=== PATIENT | female | born 1965 | race Caucasian/White ===

== ENCOUNTER 2017-12-07 19:44 | Inpatient (IN) | payer OTHER ==
[~2017-12-07] VITALS: Ht 172.7 cm; Wt 53.7 kg
[2017-12-07] MEDS ORDERED: LIDOCAINE 1%/EPINEPHrine 1:100,000 SOLN 50 ML VIAL INFIL ONE (20:00)
[2017-12-07] MEDS ORDERED: TETANUS/DIPHTHERIA TOXOID ADULT 0.5 ML VIAL IM ONE (20:00)
[2017-12-07] MEDS ORDERED: SODIUM CHLOR 0.9% 1000 ML INJ 1,000 ML IV ONE (20:00)
[2017-12-07] MEDS ORDERED: LORazepam 2 MG/ML VIAL IV PUSH ONE (20:00)
[2017-12-07 20:12] VITALS: BP 134/90; PULSE 106; RESP 18; TEMP 98.9; O2SAT 100
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
[2017-12-07 20:32] LABS: AUTOMATED NEUTROPHIL # 8.5 TH/MM3 (1.8-7.7); BASOPHIL # 0.1 TH/MM3 (0-0.2); EOSINOPHIL % 0.1 % (0.0-4.0); HEMOGLOBIN 16.9 GM/DL (11.6-15.3); LYMPH % 17.5 % (9.0-44.0); MEAN CELL VOLUME 94.9 FL (80.0-100.0); MEAN CORPUSCULAR HEMOGLOBIN 31.5 PG (27.0-34.0); MEAN CORPUSCULAR HGB CONC 33.2 % (32.0-36.0); MEAN PLATELET VOLUME 8.6 FL (7.0-11.0); MONOCYTE # 0.7 TH/MM3 (0-0.9); NEUT % 75.4 % (16.0-70.0); PLATELET COUNT 305 TH/MM3 (150-450); RED BLOOD COUNT 5.37 MIL/MM3 (4.00-5.30); RED CELL DISTRIBUTION WIDTH 13.1 % (11.6-17.2); WHITE BLOOD COUNT 11.3 TH/MM3 (4.0-11.0)
[2017-12-07 20:56] LABS: ALT (GPT) 18 U/L (10-53)
[2017-12-07] MEDS ORDERED: NICOTINE 14 MG/24 HR PATCH T-DERMAL ONE (21:00)
[2017-12-07 21:06] LABS: ALKALINE PHOSPHATASE 51 U/L (45-117); TOTAL BILIRUBIN ADULT 0.5 MG/DL (0.2-1.0); TOTAL PROTEIN 7.7 GM/DL (6.4-8.2)
[2017-12-07 21:08] LABS: ALBUMIN 4.2 GM/DL (3.4-5.0); AST (GOT) 19 U/L (15-37); BICARBONATE 19.4 MEQ/L (21.0-32.0); BLOOD UREA NITROGEN 7 MG/DL (7-18); CALCIUM 9.3 MG/DL (8.5-10.1); CHLORIDE 106 MEQ/L (98-107); GLOMERULAR FILTRATION RATE 66 ML/MIN (>89); GLUCOSE,RANDOM 117 MG/DL (74-106); SODIUM (NA) 138 MEQ/L (136-145)
[2017-12-07 21:09] LABS: ACETAMINOPHEN LESS THAN 2.0 MCG/ML (10.0-30.0)
[2017-12-08] MEDS: IBUPROFEN 600 MG TAB PO SCH ×5 (03:48→23:40)
[2017-12-08 05:00] VITALS: BP 138/78; PULSE 76; RESP 16; O2SAT 98
[2017-12-08 10:47] VITALS: BP 136/88; PULSE 84; RESP 16; TEMP 98.7; O2SAT 98
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
[2017-12-08] MEDS ORDERED: LORazepam 2 MG/ML VIAL IM PRN ×2 (13:30)
[2017-12-08] MEDS ORDERED: ALUMINUM/MAGNESIUM/SIMETH 30 ML CUP PO PRN (13:30)
[2017-12-08] MEDS ORDERED: ACETAMINOPHEN 325 MG TAB PO PRN (13:30)
[2017-12-08] MEDS ORDERED: MAGNESIUM HYDROXIDE SUSP 30 ML CUP PO PRN (13:30)
[2017-12-08 14:15] VITALS: BP 106/73; PULSE 93; RESP 17; TEMP 98.3
--- NOTE | 2017-12-08 14:36 | HHI.HP ---
Provisional Diagnosis Admission Date December 08, 2017 at 13:22 [place] I. Adjustment disorder with depressed mood, mild to moderate intellectual disability?? [place] II. Deferred [place] III. TBI [place] IV. Unemployed, poor family support [place] V. 40 Certification of Person's Competence To Provide Express and Informed Consent I have personally examined Tatyana Kenny , a person being served at [facility] on, December 08, 2017 14:20. Express and informed consent means consent voluntarily given in writing, by a competent person, after sufficient explanation and disclosure of the subject matter involved to enable the person to make a knowing and willful decision without any element of force, fraud, deceit, duress, or other form of constraint or coercion. This person is 18 years of age or older, is not now known to be incompetent to consent to treatment with a guardian advocate, and does not have a health care surrogate or proxy currently making medical treatment decisions. I have found this person to be one of the following: [] Competent to provide express and informed consent, as defined above, for voluntary admission to this facility and is competent to provide express and informed consent for treatment. He/she has the consistent capacity to make well reasoned, willful, and knowing decisions concerning his or her medical or mental health treatment. The person fully and consistently understands the purpose of the admission for examination/placement and is fully capable of personally exercising all rights assured [place] Incompetent to provide express and informed consent to voluntary admission, and this is incompetent to provide express and informed consent to treatment. The person must be transferred to involuntary status and a petition for a guardian advocate filed with the Circuit Court. [x] Refusing to provide express and informed consent to voluntary admission but is competent to provide express and informed consent for treatment. The person must be discharged or transferred to involuntary status. Form shall be completed within 24 hours of a person's arrival at the receiving facility and filed in the clinical record of each person: 1. Admitted on a voluntary basis 2. Permitted to provide express and informed consent to his/her own treatment 3. Allowed to transfer from involuntary to voluntary status 4. Prior to permitting a person to consent to his or her own treatment after having been previously found incompetent to consent to treatment. History of Present Illness Capacity: Has Capacity HPI The patient is 52-year-old woman, domiciled with a friend in [facility], mother of 3 adult kids, unemployed, without no previous psychiatric history, no previous suicide attempts, no previous psychiatric hospitalizations, medical history of TBI, presents emergency department under [place] act by for psychological evaluation. Patient is brought in by EMS. She had performed suicide gesture cutting to both forearms, patient has multiple self-inflicted lacerations in both arms, many of them sutured. She states that she has been living in a house for the last 17 years. A drug addict moved in downstairs and she cannot get him evicted. She just does not want to be here any longer. She denies that this was a suicide attempt. She denies any homicidal ideation. Not up-to-date with immunizations. Denies any medical problems. Denies any toxic ingestions. Denies alcohol and drugs. She does smoke a pack a day. Symptoms are severe. No alleviating factors. EMR was reviewed. No collateral information available at this moment. Case widely discussed with nursing charge. On psychiatric evaluation today the patient is oppositional, irritable , requesting to be discharged. The patient reports that she does not need to be here. She says that she is very afraid of the patient's around her. "There is a woman that is terrible, she has pick on me and "she does not stop watching " . The patient is quite concrete and at times childish. She states that the reason she is here is because she has been renting her basement to a roommate who is heroine addict, "he is no pain when, but he does not want to leave the house now". She reports that they had an argument yesterday, she lost the control herself, she had a moment of obnubilation and blindness, and under a stress and anger she cut herself. She says that she did not wanted to kill herself. She says that she was 1 of the, but now she understand her mistake and she regrets it. The patient denies suicidal enemas ideation, she denies visual and auditory hallucinations. She is oriented 3. No attention deficit, no fluctuation of consciousness. No agitation or aggressive behavior. Review of Systems Constitutional: DENIES: Diaphoretic episodes, Fatigue, Fever, Weight gain, Weight loss, Chills, Dizziness, Change in appetite, Night Sweats Endocrine: DENIES: Abnorml menstrual pattern, Heat/cold intolerance, Polydipsia , Polyuria, Polyphagia Eyes: DENIES: Blurred vision, Diplopia, Eye inflammation, Eye pain, Vision loss , Photosensitivity, Double Vision Ears, nose, mouth, throat: DENIES: Tinnitus, Hearing loss, Vertigo, Nasal discharge, Oral lesions, Throat pain, Hoarseness, Ear Pain, Running Nose, Epistaxis, Sinus Pain, Toothache, Odynophagia Respiratory: DENIES: Apneas, Cough, Snoring, Wheezing, Hemoptysis, Sputum production, Shortness of breath Cardiovascular: DENIES: Chest pain, Palpitations, Syncope, Dyspnea on Exertion , PND, Lower Extremity Edema, Orthopnea, Claudication Gastrointestinal: DENIES: Abdominal pain, Black stools, Bloody stools, Constipation, Diarrhea, Nausea, Vomiting, Difficulty Swallowing, Anorexia Genitourinary: DENIES: Abnormal vaginal bleeding, Dysmenorrhea, Dyspareunia, Sexual dysfunction, Urinary frequency, Urinary incontinence, Urgency, Hematuria , Dysuria, Nocturia, Vaginal discharge Musculoskeletal: DENIES: Joint pain, Muscle aches, Stiffness, Joint Swelling, Back pain, Neck pain Integumentary: DENIES: Abnormal pigmentation, Pruritus, Rash, Nail changes, Breast masses, Breast skin changes, Nipple discharge Hematologic/lymphatic: DENIES: Bruising, Lymphadenopathy Immunologic/allergic: DENIES: Eczema, Urticaria Neurologic: DENIES: Abnormal gait, Headache, Localized weakness, Paresthesias, Seizures, Speech Problems, Tremor, Poor Balance Psychiatric: DENIES: Anxiety, Confusion, Mood changes, Depression, Hallucinations, Agitation, Suicidal Ideation, Homicidal Ideation, Delusions Substance Abuse History Drugs/Alcohol past 12 months Patient denies the use of alcohol or illegal drugs Past Family Social History Coded Allergies: Penicillins (Verified Allergy, Unknown, 12/07/17) No Active Prescriptions or Reported Meds Current Medications Medications (Trade) Dose Ordered Sig/Terri Route Start Time Stop Time Status Last Admin (Motrin) 600 mg Q6HR PO 12/08/17 03:45 12/08/17 03:48 (Ativan) 1 mg Q6H PRN PO 12/08/17 13:30 (Ativan Inj) 1 mg Q6H PRN IM 12/08/17 13:30 (Ativan) 0.5 mg Q12H PRN PO 12/08/17 13:30 (Ativan Inj) 0.5 mg Q12H PRN IM 12/08/17 13:30 (Tylenol) 650 mg Q4H PRN PO 12/08/17 13:30 (Milk Of Magnesia Liq) 30 ml DAILY PRN PO 12/08/17 13:30 (Mag-Al Plus Susp Liq) 30 ml Q6H PRN PO 12/08/17 13:30 (Habitrol 21 Mg Patch.24 Hr) 1 patch DAILY T-DERMAL 12/09/17 09:00 Miscellaneous Information 1 HS T-DERMAL 12/08/17 21:00 Family Psych History No family psychiatric history Social History The patient was born and raised in [facility], she lives in [facility] with her best friend, she has 3 adult kids, unemployed, 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 2) Verbal communication, no previous psychiatric history Physical Exam No tremors, no psychomotor agitation retardation, no EPS, no gait disturbance, no stiffness Vital Signs Vital Signs Date Time Temp Pulse Resp B/P (MAP) Pulse Ox O2 Delivery O2 Flow Rate FiO2 12/08/17 10:47 98.7 84 16 136/88 (104) 98 Room Air Lab Results Test 12/07/17 20:10 12/07/17 21:40 White Blood Count 11.3 TH/MM3 Red Blood Count 5.37 MIL/MM3 Hemoglobin 16.9 GM/DL Hematocrit 51.0 % Mean Corpuscular Volume 94.9 FL Mean Corpuscular Hemoglobin 31.5 PG Mean Corpuscular Hemoglobin Concent 33.2 % Red Cell Distribution Width 13.1 % Platelet Count 305 TH/MM3 Mean Platelet Volume 8.6 FL Neutrophils (%) (Auto) 75.4 % Lymphocytes (%) (Auto) 17.5 % Monocytes (%) (Auto) 6.0 % Eosinophils (%) (Auto) 0.1 % Basophils (%) (Auto) 1.0 % Neutrophils # (Auto) 8.5 TH/MM3 Lymphocytes # (Auto) 2.0 TH/MM3 Monocytes # (Auto) 0.7 TH/MM3 Eosinophils # (Auto) 0.0 TH/MM3 Basophils # (Auto) 0.1 TH/MM3 CBC Comment DIFF FINAL Differential Comment Blood Urea Nitrogen 7 MG/DL Creatinine 0.90 MG/DL Random Glucose 117 MG/DL Total Protein 7.7 GM/DL Albumin 4.2 GM/DL Calcium Level 9.3 MG/DL Alkaline Phosphatase 51 U/L Aspartate Amino Transf (AST/SGOT) 19 U/L Alanine Aminotransferase (ALT/SGPT) 18 U/L Total Bilirubin 0.5 MG/DL Sodium Level 138 MEQ/L Potassium Level 4.3 MEQ/L Chloride Level 106 MEQ/L Carbon Dioxide Level 19.4 MEQ/L Anion Gap 13 MEQ/L Estimat Glomerular Filtration Rate 66 ML/MIN Thyroid Stimulating Hormone 3rd Gen 1.060 uIU/ML Salicylates Level 3.6 MG/DL Acetaminophen Level LESS THAN 2.0 MCG/ML Ethyl Alcohol Level LESS THAN 3 MG/DL Urine Opiates Screen NEG Urine Barbiturates Screen NEG Urine Amphetamines Screen NEG Urine Benzodiazepines Screen NEG Urine Cocaine Screen NEG Urine Cannabinoids Screen NEG Mental Status Examination Appearance: Appropriate Consciousness: Alert Orientation: x4 Motor Activity: Normal gait Speech: Unremarkable Language: Adequate Fund of Knowledge: Adequate Attention and Concentration: Adequate Memory: Unremarkable Mood: Appropriate Affect: Appropriate Thought Process & Associations: Intact Thought Content: Appropriate Hallucination Type: None Delusion Type: None Suicidal Ideation: No Suicidal Plan: No Suicidal Intention: No Homicidal Ideation: No Homicidal Plan: No Homicidal Intention: No Insight: Adequate Judgment: Adequate Assessment & Plan Problem List: (1) Adjustment disorder with depressed mood ICD Codes: F43.21 - Adjustment disorder with depressed mood Assessment & Plan: Psychiatric evaluation today the patient is oppositional, irritable, superficially cooperative. She seems to be minimizing recent suicide attempt by cutting. She reports that her suicidal gesture was the result of an argument with a person who lives in her house. However, the self- inflicted lacerations are quite deep and numerous which may me think that the patient is not insightful about her emotions and feelings. She denies depression at the moment, denies anxiety, denies wil and psychosis. She denies suicidal enemas ideation, she denies visual and auditory hallucinations. [place] and bizarre thinking, child like behavior are present which may me wonder if the patient may have an underlying developmental delay and as a result of poor impulse control. Given the lethality of recent suicidal gesture , the elevated risk of danger to self at the moment, the patient will be admitted in psychiatry for longitudinal observation of mood and behavior. She refuses to take medications. Collateral information is crucial to complete the psychiatric assessment start a safe discharge plan. Brief supportive psychotherapy and psychoeducation provided. Haldol 5 mg IM every 8 hours as needed aggressive behavior and agitation will be ordered. Transfer to the psychiatric unit. Assessment & Plan Estimated LOS: days Patrick Alvarez MD December 08, 2017 14:36
[2017-12-08] MEDS: NICOTINE 21 MG/24 HR PATCH T-DERMAL SCH (16:00)
[2017-12-08] MEDS: REMOVE OLD PATCH T-DERMAL SCH (21:00)
[2017-12-09] MEDS: LORazepam 1 MG TAB PO PRN (00:38)
[2017-12-09] MEDS: IBUPROFEN 600 MG TAB PO SCH ×3 (05:57→18:33)
[2017-12-09 06:23] VITALS: BP 124/70; PULSE 65; RESP 16; TEMP 97.2
[2017-12-09 08:29] LABS: BICARBONATE 23.9 MEQ/L (21.0-32.0); BLOOD UREA NITROGEN 10 MG/DL (7-18); CALCIUM 8.4 MG/DL (8.5-10.1); CHLORIDE 111 MEQ/L (98-107); CHOLESTEROL 124 MG/DL (120-200); CREATININE 0.73 MG/DL (0.50-1.00); GLOMERULAR FILTRATION RATE 84 ML/MIN (>89); GLUCOSE,RANDOM 96 MG/DL (74-106); HDL CHOLESTEROL 45.8 MG/DL (40.0-60.0); LDL CHOLESTEROL 62 MG/DL (0-99); SODIUM (NA) 142 MEQ/L (136-145); TRIGLYCERIDES 80 MG/DL (42-150)
--- NOTE | 2017-12-09 08:40 | PD ---
History of Present Illness Chief Complaint: Suicide Ideation/Attempt Time Seen by Provider: 07:30 Travel History International Travel<30 Days: No Contact w/Intl Traveler<30days: No Known affected area: No Legal Status Legal Status: [place] Act [place] Act Signed By: Duane Romeo History of Present Illness: Chart reviewed and discussed with nurse. MAJO Cee and I met with patient in day room. Patient is pre-occupied about shaving her face with a razor that she has in her belongings. The night staff noted that she was pre-occupied with the care of her cats and contacting her boyfriend. She states, " I have PTSD because I keep living with people who have alcohol and drug problems." Sleeping and eating well. Taking motrin for the discomfort in her bilateral wrists, dressing intact. States her mood is good. PFSH Past Medical History Medical History: Denies Significant Hx Arthritis: No Asthma: No Autoimmune Disease: No Anxiety: Yes Depression: Yes Heart Rhythm Problems: No Cancer: No Cardiovascular Problems: No High Cholesterol: No Chemotherapy: No Chest Pain: No Congestive Heart Failure: No COPD: No Cerebrovascular Accident: No Diabetes: No Patient Takes Glucophage: No Endocrine: No GERD: No Genitourinary: No Hiatal Hernia: No Immune Disorder: No Kidney Stones: No Musculoskeletal: No Neurologic: No Psychiatric: No Reproductive: No Respiratory: No Migraines: No Radiation Therapy: No Renal Failure: No Seizures: No Sickle Cell Disease: No Sleep Apnea: No Thyroid Disease: No Ulcer: No Tetanus Vaccination: > 5 Years ?: Not Past Surgical History Abdominal Surgery: No AICD: No Arteriovenous Shunt: No Cardiac Surgery: No Ear Surgery: No Endocrine Surgery: No Eye Surgery: No Genitourinary Surgery: No Gynecologic Surgery: No Insulin Pump: No Joint Replacement: No Oral Surgery: No Pacemaker: No Thoracic Surgery: No Psychiatric History Psychiatric History Hx Psychiatric Treatment: PT DENIES History of Inpatient Treatment: No Guns or firearms in home: No Social History Hx Alcohol Use: Yes Hx Tobacco Use: No Hx Substance Use: No (HX ALCOHOL) Hx of Substance Use Treatment: No Allergies-Medications (Allergen,Severity, Reaction): Coded Allergies: Penicillins (Verified Allergy, Unknown, 12/07/17) Reported Meds & Prescriptions Reported Meds & Active Scripts Active No Active Prescriptions or Reported Medications Mental Status Examination Appearance: Appropriate Consciousness: Alert Orientation: x4 Motor Activity: Other (Did not observe) Speech: Unremarkable Language: Adequate Fund of Knowledge: Adequate Attention and Concentration: Adequate Memory: Unremarkable Mood: Oppositional, Irritable Affect: Blunt Thought Process & Associations: Intact, Logical, Goal directed Thought Content: Appropriate Hallucination Type: None Delusion Type: None Suicidal Ideation: No Suicidal Plan: No Suicidal Intention: No Homicidal Ideation: No Homicidal Plan: No Homicidal Intention: No Insight: Poor Judgment: Impulsive MDM Medical Decision Making Assessment/Plan Patient is easily directed and cooperative. Endorses today that she is not suicidal, but not remorsal for cutting her wrists. She feels that she was brought to cutting her wrists due to her living situation. Moving patient to a lower level of care may result in her decompensation. Orders Orders Diet Regular Basic (12/08/17 Lunch) Admit To Inpatient Psych (12/08/17 ) Vital Signs (Adult) MANUEL.Q12H.E (12/08/17 13:19) Activity Oob Ad Lynn (12/08/17 13:19) Lorazepam (Ativan) (12/08/17 13:30) Lorazepam Inj (Ativan Inj) (12/08/17 13:30) Lorazepam (Ativan) (12/08/17 13:30) Lorazepam Inj (Ativan Inj) (12/08/17 13:30) Acetaminophen (Tylenol) (12/08/17 13:30) Magnesium Hydroxide Liq (Milk Of Magnesi (12/08/17 13:30) Al-Mag Hy-Si 40-40-4 Mg/Ml Liq (Mag-Al P (12/08/17 13:30) Basic Metabolic Panel (Bmp) (12/09/17 06:00) Lipid Profile (12/09/17 06:00) Hemoglobin (Hgb) A1c (12/09/17 06:00) Remove Old Patch (12/08/17 21:00) Consult Psychiatry (12/08/17 ) (Hub Use Only)Inp Phy Cons/Ref (12/08/17 ) Nicotine 21 Mg Patch.24 Hr (Habitrol 21 (12/08/17 16:00) Results Vital Signs Date Time Temp Pulse Resp B/P (MAP) Pulse Ox O2 Delivery O2 Flow Rate FiO2 12/09/17 06:57 16 12/09/17 06:23 97.2 65 16 124/70 (88) 12/08/17 14:15 98.3 93 17 106/73 (84) 12/08/17 10:47 98.7 84 16 136/88 (104) 98 Room Air Laboratory Tests Test 12/09/17 07:07 Blood Urea Nitrogen 10 Creatinine 0.73 Random Glucose 96 Calcium Level 8.4 Sodium Level 142 Potassium Level 3.7 Chloride Level 111 Carbon Dioxide Level 23.9 Anion Gap 7 Estimat Glomerular Filtration Rate 84 Triglycerides Level 80 Cholesterol Level 124 LDL Cholesterol 62 HDL Cholesterol 45.8 Cholesterol/HDL Ratio 2.70 Diagnosis Primary Impression: Adjustment disorder with depressed mood Prescriptions No Active Prescriptions or Reported Meds Lu Hussein December 09, 2017 08:40
[2017-12-09] MEDS: NICOTINE 21 MG/24 HR PATCH T-DERMAL SCH (09:00)
--- NOTE | 2017-12-09 09:32 | HHI.PYPN ---
Subjective Remarks Chart reviewed and discussed with nurse. MAJO Cee and I met with patient in day room. Patient is pre-occupied about shaving her face with a razor that she has in her belongings. The night staff noted that she was pre-occupied with the care of her cats and contacting her boyfriend. She states, " I have PTSD because I keep living with people who have alcohol and drug problems." Sleeping and eating well. Taking motrin for the discomfort in her bilateral wrists, dressing intact. States her mood is good. Mental Status Examination Appearance: Appropriate Consciousness: Alert Orientation: x4 Motor Activity: Other (Did not observe) Speech: Unremarkable Language: Adequate Fund of Knowledge: Adequate Attention and Concentration: Adequate Memory: Unremarkable Mood: Oppositional, Irritable Affect: Blunt Thought Process & Associations: Intact, Logical, Goal directed Thought Content: Appropriate Hallucination Type: None Delusion Type: None Suicidal Ideation: No Suicidal Plan: No Suicidal Intention: No Homicidal Ideation: No Homicidal Plan: No Homicidal Intention: No Insight: Poor Judgment: Impulsive Results Labs Test 12/09/17 07:07 Blood Urea Nitrogen 10 MG/DL Creatinine 0.73 MG/DL Random Glucose 96 MG/DL Calcium Level 8.4 MG/DL Sodium Level 142 MEQ/L Potassium Level 3.7 MEQ/L Chloride Level 111 MEQ/L Carbon Dioxide Level 23.9 MEQ/L Anion Gap 7 MEQ/L Estimat Glomerular Filtration Rate 84 ML/MIN Triglycerides Level 80 MG/DL Cholesterol Level 124 MG/DL LDL Cholesterol 62 MG/DL HDL Cholesterol 45.8 MG/DL Cholesterol/HDL Ratio 2.70 RATIO Vitals/IOs Vital Signs Date Time Temp Pulse Resp B/P (MAP) Pulse Ox O2 Delivery O2 Flow Rate FiO2 12/09/17 06:57 16 12/09/17 06:23 97.2 65 124/70 (88) 12/08/17 10:47 98 Room Air Assessment & Plan Problem List: (1) Adjustment disorder with depressed mood ICD Codes: F43.21 - Adjustment disorder with depressed mood Assessment & Plan Estimated LOS: days Justification for Cont. Inpt. Patient is easily directed and cooperative. Endorses today that she is not suicidal, but not remorsal for cutting her wrists. She feels that she was brought to cutting her wrists due to her living situation. Moving patient to a lower level of care may result in her decompensation. Lu Hsusein December 09, 2017 09:31
[2017-12-09 18:14] VITALS: BP 114/67; PULSE 95; RESP 17; TEMP 98.1; O2SAT 99
[2017-12-09] MEDS: hydrOXYzine HCL 50 MG TAB PO PRN (18:31)
[2017-12-09] MEDS: REMOVE OLD PATCH T-DERMAL SCH (21:32)
[2017-12-09] MEDS: LORazepam 0.5 MG TAB PO PRN (22:19)
[2017-12-10] MEDS: hydrOXYzine HCL 50 MG TAB PO PRN ×2 (00:25→18:23)
[2017-12-10] MEDS: IBUPROFEN 600 MG TAB PO SCH ×5 (00:25→23:13)
[2017-12-10 06:10] VITALS: BP 107/71; PULSE 69; RESP 16; TEMP 97.6; O2SAT 99
[2017-12-10] MEDS: NICOTINE 21 MG/24 HR PATCH T-DERMAL SCH (09:00)
[2017-12-10] MEDS: LORazepam 0.5 MG TAB PO PRN (11:48)
[2017-12-10 13:09] LABS: HEMOGLOBIN A1C 5.5 % (4.3-6.0)
--- NOTE | 2017-12-10 14:56 | PD.PSY.CON ---
Provisional Diagnosis Admission Date December 08, 2017 at 13:22 [place] I. 1. Adjustment disorder with depressed mood [place] II. 1. Rule out some degree of intellectual disability or acquired intellectual deficit History of Present Illness Service Psychiatry Consult Requested By Dr. Alvarez Reason for Consult Second opinion for involuntary psychiatric hospitalization Primary Care Physician Unknown HPI From Dr. Alvarez's H&P: The patient is 52-year-old woman, domiciled with a friend in [facility], mother of 3 adult kids, unemployed, without no previous psychiatric history, no previous suicide attempts, no previous psychiatric hospitalizations, medical history of TBI, presents emergency department under [place] act by PD for psychological evaluation. Patient is brought in by EMS. She had performed suicide gesture cutting to both forearms, patient has multiple self-inflicted lacerations in both arms, many of them sutured. She states that she has been living in a house for the last 17 years. A drug addict moved in downstairs and she cannot get him evicted. She just does not want to be here any longer. She denies that this was a suicide attempt. She denies any homicidal ideation. Not up-to-date with immunizations. Denies any medical problems. Denies any toxic ingestions. Denies alcohol and drugs. She does smoke a pack a day. Symptoms are severe. No alleviating factors. EMR was reviewed. No collateral information available at this moment. Case widely discussed with nursing charge. On psychiatric evaluation today the patient is oppositional, irritable , requesting to be discharged. The patient reports that she does not need to be here. She says that she is very afraid of the patient's around her. "There is a woman that is terrible, she has pick on me and "she does not stop watching " . The patient is quite concrete and at times childish. She states that the reason she is here is because she has been renting her basement to a roommate who is heroine addict, "he is no pain when, but he does not want to leave the house now". She reports that they had an argument yesterday, she lost the control herself, she had a moment of obnubilation and blindness, and under a stress and anger she cut herself. She says that she did not wanted to kill herself. She says that she was 1 of the, but now she understand her mistake and she regrets it. The patient denies suicidal enemas ideation, she denies visual and auditory hallucinations. She is oriented 3. No attention deficit, no fluctuation of consciousness. No agitation or aggressive behavior. On my examination today, 12/10: Patient seen and examined with nurse. Chart reviewed. Case discussed with nursing staff. I have discussed with patient the purpose of my evaluation today as regards the second opinion. On my examination today, the patient presents as fairly childlike. Her thought process is concrete and she repeats much of the same material over and over again. She is tearful and labile. She is perseverative on wanting to be sent to the [facility]. She tells me "I do not want to be in [facility] with a heroin addict." No active SI or HI verbalized, but the patient seems unreliable to contract for safety. No psychotic material verbalized. Psychiatric interview is somewhat limited because of patient's perseveration, and I am unable to obtain any meaningful past psychiatric, family, chemical dependency or social history for the same reason. No physical complaints. Review of Systems ROS Limitations: Poor Historian Except as stated in HPI: all other systems reviewed are Neg Past Family Social History Coded Allergies: Penicillins (Verified Allergy, Unknown, 12/07/17) Past Medical History See electronic medical record No Active Prescriptions or Reported Meds Current Medications Medications (Trade) Dose Ordered Sig/Terri Route Start Time Stop Time Status Last Admin (Motrin) 600 mg Q6HR PO 12/08/17 03:45 12/10/17 11:49 (Ativan) 1 mg Q6H PRN PO 12/08/17 13:30 12/09/17 00:38 (Ativan Inj) 1 mg Q6H PRN IM 12/08/17 13:30 (Ativan) 0.5 mg Q12H PRN PO 12/08/17 13:30 12/10/17 11:48 (Ativan Inj) 0.5 mg Q12H PRN IM 12/08/17 13:30 (Tylenol) 650 mg Q4H PRN PO 12/08/17 13:30 (Milk Of Magnesia Liq) 30 ml DAILY PRN PO 12/08/17 13:30 (Mag-Al Plus Susp Liq) 30 ml Q6H PRN PO 12/08/17 13:30 (Habitrol 21 Mg Patch.24 Hr) 1 patch DAILY T-DERMAL 12/08/17 16:00 12/10/17 09:00 Miscellaneous Information 1 HS T-DERMAL 12/08/17 21:00 12/09/17 21:32 (Atarax) 50 mg Q8H PRN PO 12/09/17 15:45 12/10/17 00:25 Patient's Strengths (min. 2) In a monitored setting. Verbally fluent. Physical Exam Physical exam completed by ED provider. On my examination today, patient appears to be in no acute physical distress. No motor abnormalities noted. Labs and vitals reviewed: Vital Signs Vital Signs Date Time Temp Pulse Resp B/P (MAP) Pulse Ox O2 Delivery O2 Flow Rate FiO2 12/10/17 12:50 16 12/10/17 06:10 97.6 69 107/71 (83) 99 12/08/17 10:47 Room Air Lab Results Laboratory Tests Test 12/07/17 20:10 12/07/17 21:40 12/09/17 07:07 White Blood Count 11.3 TH/MM3 Red Blood Count 5.37 MIL/MM3 Hemoglobin 16.9 GM/DL Hematocrit 51.0 % Mean Corpuscular Volume 94.9 FL Mean Corpuscular Hemoglobin 31.5 PG Mean Corpuscular Hemoglobin Concent 33.2 % Red Cell Distribution Width 13.1 % Platelet Count 305 TH/MM3 Mean Platelet Volume 8.6 FL Neutrophils (%) (Auto) 75.4 % Lymphocytes (%) (Auto) 17.5 % Monocytes (%) (Auto) 6.0 % Eosinophils (%) (Auto) 0.1 % Basophils (%) (Auto) 1.0 % Neutrophils # (Auto) 8.5 TH/MM3 Lymphocytes # (Auto) 2.0 TH/MM3 Monocytes # (Auto) 0.7 TH/MM3 Eosinophils # (Auto) 0.0 TH/MM3 Basophils # (Auto) 0.1 TH/MM3 CBC Comment DIFF FINAL Differential Comment Blood Urea Nitrogen 7 MG/DL 10 MG/DL Creatinine 0.90 MG/DL 0.73 MG/DL Random Glucose 117 MG/DL 96 MG/DL Total Protein 7.7 GM/DL Albumin 4.2 GM/DL Calcium Level 9.3 MG/DL 8.4 MG/DL Alkaline Phosphatase 51 U/L Aspartate Amino Transf (AST/SGOT) 19 U/L Alanine Aminotransferase (ALT/SGPT) 18 U/L Total Bilirubin 0.5 MG/DL Sodium Level 138 MEQ/L 142 MEQ/L Potassium Level 4.3 MEQ/L 3.7 MEQ/L Chloride Level 106 MEQ/L 111 MEQ/L Carbon Dioxide Level 19.4 MEQ/L 23.9 MEQ/L Thyroid Stimulating Hormone 3rd Gen 1.060 uIU/ML Salicylates Level 3.6 MG/DL Acetaminophen Level LESS THAN 2.0 MCG/ML Ethyl Alcohol Level LESS THAN 3 MG/DL Urine Opiates Screen NEG Urine Barbiturates Screen NEG Urine Amphetamines Screen NEG Urine Benzodiazepines Screen NEG Urine Cocaine Screen NEG Urine Cannabinoids Screen NEG Anion Gap 7 MEQ/L Estimat Glomerular Filtration Rate 84 ML/MIN Hemoglobin A1c 5.5 % Triglycerides Level 80 MG/DL Cholesterol Level 124 MG/DL LDL Cholesterol 62 MG/DL HDL Cholesterol 45.8 MG/DL Cholesterol/HDL Ratio 2.70 RATIO Mental Status Examination Appearance: Appropriate Consciousness: Alert Orientation: x4 Motor Activity: Other (No motor abnormalities noted) Speech: Unremarkable Language: Adequate Fund of Knowledge: Inadequate Attention and Concentration: Adequate Memory: Unremarkable Mood: Anxious Affect: Labile, Other (Childlike) Thought Process & Associations: Other (Perseverative, concrete) Thought Content: Preoccupations Hallucination Type: None Delusion Type: None Suicidal Ideation: No (No SI voiced) Homicidal Ideation: No (No HI voiced) Insight: Poor Judgment: Impulsive Assessment & Plan Problem List: (1) Adjustment disorder with depressed mood ICD Codes: F43.21 - Adjustment disorder with depressed mood Assessment & Plan Given the circumstances of the patient's presentation here and her presentation on my examination today, I concur that the patient meets criteria for involuntary psychiatric hospitalization under the Carr act. I have completed the second opinion paperwork. Concern here is for risk for ongoing self-harm. Continue to monitor on the inpatient unit. Continue other medications and care as ordered. Discharge Planning As ordered by primary psychiatrist Osorio King MD December 10, 2017 14:55
[2017-12-10 15:13] VITALS: BP 118/66; PULSE 65; RESP 18; TEMP 97.8; O2SAT 99
[2017-12-10] MEDS: REMOVE OLD PATCH T-DERMAL SCH (21:00)
[2017-12-10] MEDS: LORazepam 1 MG TAB PO PRN (21:43)
[2017-12-11] MEDS: IBUPROFEN 600 MG TAB PO SCH ×4 (06:02→23:01)
[2017-12-11 06:13] VITALS: BP 108/61; PULSE 61; RESP 18; TEMP 97.5; O2SAT 96
[2017-12-11] MEDS: NICOTINE 21 MG/24 HR PATCH T-DERMAL SCH (08:15)
--- NOTE | 2017-12-11 11:17 | HHI.PYPN ---
Subjective Remarks Patient initially admitted by Dr. Barnes, he is not H&P there is been reviewed by me. I have completed the initial psychiatric admission template and did a review of bed recurrence's alleviation. Patient is also been seen by Dr. King to second opinion petition. Patient seen by me today continues quite labile and tearful markedly disorganized circumstantial and tangential. Trying very little ability to process and organize past behaviors coherently. He does deny alcohol or drugs. States that she may have had issues with those in the past. She deflects much responsibility for past behaviors on to relationships initially with family of origin. We will add Zoloft 25 mg daily. We will need to work with counselors find this lady an appropriate placement. However I wonder if there may be a possibility of her returning to the room she has been renting from this 1 man for 17 years Review of Systems Constitutional: DENIES: Diaphoretic episodes, Fatigue, Fever, Weight gain, Weight loss, Chills, Dizziness, Change in appetite, Night Sweats Endocrine: DENIES: Abnorml menstrual pattern, Heat/cold intolerance, Polydipsia , Polyuria, Polyphagia Eyes: DENIES: Blurred vision, Diplopia, Eye inflammation, Eye pain, Vision loss , Photosensitivity, Double Vision Ears, nose, mouth, throat: DENIES: Tinnitus, Hearing loss, Vertigo, Nasal discharge, Oral lesions, Throat pain, Hoarseness, Ear Pain, Running Nose, Epistaxis, Sinus Pain, Toothache, Odynophagia Respiratory: DENIES: Apneas, Cough, Snoring, Wheezing, Hemoptysis, Sputum production, Shortness of breath Cardiovascular: DENIES: Chest pain, Palpitations, Syncope, Dyspnea on Exertion , PND, Lower Extremity Edema, Orthopnea, Claudication Gastrointestinal: DENIES: Abdominal pain, Black stools, Bloody stools, Constipation, Diarrhea, Nausea, Vomiting, Difficulty Swallowing, Anorexia Genitourinary: DENIES: Abnormal vaginal bleeding, Dysmenorrhea, Dyspareunia, Sexual dysfunction, Urinary frequency, Urinary incontinence, Urgency, Hematuria , Dysuria, Nocturia, Vaginal discharge Musculoskeletal: DENIES: Joint pain, Muscle aches, Stiffness, Joint Swelling, Back pain, Neck pain Integumentary: DENIES: Abnormal pigmentation, Pruritus, Rash, Nail changes, Breast masses, Breast skin changes, Nipple discharge Hematologic/lymphatic: DENIES: Bruising, Lymphadenopathy Immunologic/allergic: DENIES: Eczema, Urticaria Neurologic: DENIES: Abnormal gait, Headache, Localized weakness, Paresthesias, Seizures, Speech Problems, Tremor, Poor Balance Psychiatric: COMPLAINS OF: Anxiety, Depression, Agitation, Suicidal Ideation ( Vaguely denies) Mental Status Examination Appearance: Appropriate Consciousness: Alert Orientation: x4 Motor Activity: Normal gait Speech: Pressured, Rapid Language: Adequate Fund of Knowledge: Inadequate Attention and Concentration: Adequate Memory: Unremarkable Mood: Sad, Anxious Affect: Other (Decreased range and intensity) Thought Process & Associations: Circumstantial, Tangential, Other ( Perseverative, concrete) Thought Content: Preoccupations Hallucination Type: None Delusion Type: None Suicidal Ideation: No (No SI voiced made illusions to her safety she was discharged to the street) Homicidal Ideation: No (No HI voiced) Homicidal Plan: No Homicidal Intention: No Insight: Poor Judgment: Poor Results Vitals/IOs Vital Signs Date Time Temp Pulse Resp B/P (MAP) Pulse Ox O2 Delivery O2 Flow Rate FiO2 12/11/17 06:13 97.5 61 18 108/61 (77) 96 12/08/17 10:47 Room Air Assessment & Plan Problem List: (1) Adjustment disorder with mixed disturbance of emotions and conduct ICD Codes: F43.25 - Adjustment disorder with mixed disturbance of emotions and conduct Assessment & Plan Estimated LOS: days patient remains depressed and anxious tearful and markedly disorganized we will add Zoloft to the medication regimen. We will have to work with Counselor Remberto possible placement for this lady. He also benefit us to talk with her landlord to get further information about these events Justification for Cont. Inpt. At this time patient would decompensate a place to a lower level of care Discharge Planning To be determined Request HC Surrog/Guard Advoc?: No Luis Wills MD December 11, 2017 11:17
[2017-12-11] MEDS: SERTRALINE HCL 50 MG TAB PO SCH (12:00)
[2017-12-11] MEDS ORDERED: hydrOXYzine HCL 50 MG TAB PO PRN (12:00)
[2017-12-11] MEDS ORDERED: diphenhydrAMINE HCL 50 MG CAP PO PRN (12:00)
--- NOTE | 2017-12-11 14:38 | PD.CONS ---
HPI Service [facility] Consult Requested By Psychiatry Reason for Consult Help with medical management Primary Care Physician Unknown Diagnoses: (1) Adjustment disorder with mixed disturbance of emotions and conduct (2) Adjustment disorder with depressed mood History of Present Illness Patient is a 52-year-old female who lives in [facility] who was brought in by the Police Department under a Carr act for psychological evaluation. Patient was noted to have multiple self-inflicted lacerations on bilateral arms that have already been sutured. Patient has a previous history of a traumatic brain injury and surgery on her right foot Review of Systems Constitutional: DENIES: Diaphoretic episodes, Fatigue, Fever, Weight gain, Weight loss, Chills, Dizziness, Change in appetite, Night Sweats Endocrine: DENIES: Abnorml menstrual pattern, Heat/cold intolerance, Polydipsia , Polyuria, Polyphagia Eyes: DENIES: Blurred vision, Diplopia, Eye inflammation, Eye pain, Vision loss , Photosensitivity, Double Vision Ears, nose, mouth, throat: DENIES: Tinnitus, Hearing loss, Vertigo, Nasal discharge, Oral lesions, Throat pain, Hoarseness, Running Nose, Epistaxis, Sinus Pain, Toothache, Odynophagia Respiratory: DENIES: Apneas, Cough, Snoring, Wheezing, Hemoptysis, Sputum production, Shortness of breath Cardiovascular: DENIES: Chest pain, Palpitations, Syncope, Dyspnea on Exertion , PND, Lower Extremity Edema, Orthopnea, Claudication Gastrointestinal: DENIES: Abdominal pain, Black stools, Bloody stools, Constipation, Diarrhea, Nausea, Vomiting, Difficulty Swallowing, Anorexia Genitourinary: DENIES: Dysmenorrhea, Dyspareunia, Urgency, Hematuria, Dysuria, Nocturia Musculoskeletal: DENIES: Joint pain, Muscle aches, Stiffness, Joint Swelling Integumentary: DENIES: Abnormal pigmentation, Pruritus, Rash Hematologic/lymphatic: DENIES: Bruising, Lymphadenopathy Immunologic/allergic: DENIES: Eczema, Urticaria Neurologic: DENIES: Abnormal gait, Headache, Localized weakness, Paresthesias, Seizures, Speech Problems Psychiatric: COMPLAINS OF: Anxiety, Mood changes, Agitation, Suicidal Ideation , Delusions Except as stated in HPI: all other systems reviewed are Neg Past Family Social History Allergies: Coded Allergies: Penicillins (Verified Allergy, Unknown, 12/07/17) Past Medical History Traumatic brain injury Surgery on right foot PTSD Depression Anxiety Past Surgical History Traumatic brain injury Surgery on right foot Reported Medications Reported Meds & Active Scripts Active No Active Prescriptions or Reported Medications Active Ordered Medications Current Medications Lorazepam (Ativan Inj) 2 mg ONCE ONCE IV PUSH Last administered on 12/07/17 20:30; Start 12/07/17 at 20:00; Stop 12/07/17 at 20:01; Status DC Tetanus/ Diphtheria Toxoids (Tetanus/ Diphtheria Tox Adult) 0.5 ml ONCE ONCE IM Last administered on 12/07/17at 20:31; Start 12/07/17 at 20:00; Stop 12/07/17 at 20:01; Status DC Sodium Chloride 1,000 ml @ 999 mls/hr BOLUS ONCE IV Last administered on 12/07 20:31; Start 12/07/17 at 20:00; Stop 12/07/17 at 21:00; Status DC Lidocaine/ Epinephrine (Xylocaine-Epi 1%-1:100,000 Inj) 50 ml ONCE ONCE INFIL Last administered on 12/07/17at 20:32; Start 12/07/17 at 20:00; Stop 12/07/17 at 20:01; Status DC Nicotine (Habitrol 14 Mg Patch.24 Hr) 1 patch ONCE ONCE T-DERMAL Last administered on 12/07/17at 21:54; Start 12/07/17 at 21:00; Stop 12/07/17 at 21:01 ; Status DC Ibuprofen (Motrin) 600 mg Q6HR PO Last administered on 12/11/17at 12:00; Start 12/08/17 at 03:45 Lorazepam (Ativan) 1 mg Q6H PRN PO MODERATE TO SEVERE ANXIETY Last administered on 12/10/17at 21:43; Start 12/08/17 at 13:30 Lorazepam (Ativan Inj) 1 mg Q6H PRN IM MODERATE TO SEVERE ANXIETY; Start at 13:30 Lorazepam (Ativan) 0.5 mg Q12H PRN PO MODERATE TO SEVERE ANXIETY Last administered on 12/10/17at 11:48; Start 12/08/17 at 13:30; Stop 12/11/17 at 11:23 ; Status DC Lorazepam (Ativan Inj) 0.5 mg Q12H PRN IM MODERATE TO SEVERE ANXIETY; Start at 13:30; Stop 12/11/17 at 11:23; Status DC Acetaminophen (Tylenol) 650 mg Q4H PRN PO Pain 1-5 or Temp >101F; Start at 13:30 Magnesium Hydroxide (Milk Of Magnesia Liq) 30 ml DAILY PRN PO CONSTIPATION; Start 12/08/17 at 13:30 Al Hydrox/Mg Hydrox/Simethicone (Mag-Al Plus Susp Liq) 30 ml Q6H PRN PO DYSPEPSIA; Start 12/08/17 at 13:30 Nicotine (Habitrol 21 Mg Patch.24 Hr) 1 patch DAILY T-DERMAL Last administered on 12/11/17at 08:15; Start 12/08/17 at 16:00 Miscellaneous Information 1 HS T-DERMAL Last administered on 12/09/17at 21:32; Start 12/08/17 at 21:00 Hydroxyzine HCl (Atarax) 50 mg Q8H PRN PO anxiety Last administered on at 18:23; Start 12/09/17 at 15:45; Stop 12/11/17 at 11:19; Status DC Diphenhydramine HCl (Benadryl) 50 mg HS PRN PO INSOMNIA; Start 12/11/17 at 12: 00 Hydroxyzine HCl (Atarax) 50 mg Q6H PRN PO ANXIETY; Start 12/11/17 at 12:00 Sertraline HCl (Zoloft) 25 mg DAILY PO Last administered on 12/11/17at 12:00; Start 12/11/17 at 12:00 Family History Family psychiatric history And family tobacco abuse Social History Denies illicit drug use History of alcohol abuse Possible tobacco abuse Physical Exam Vital Signs Vital Signs Date Time Temp Pulse Resp B/P (MAP) Pulse Ox O2 Delivery O2 Flow Rate FiO2 12/11/17 06:13 97.5 61 18 108/61 (77) 96 12/10/17 19:20 16 12/10/17 15:13 97.8 65 18 118/66 (83) 99 Physical Exam GENERAL: This is a well-nourished, well-developed patient, in no apparent distress. SKIN: No rashes, ecchymoses or lesions. Cool and dry. HEAD: Atraumatic. Normocephalic. No temporal or scalp tenderness. EYES: Pupils equal round and reactive. Extraocular motions intact. No scleral icterus. No injection or drainage. ENT: Nose without bleeding, purulent drainage or septal hematoma. Throat without erythema, tonsillar hypertrophy or exudate. Uvula midline. Airway patent. NECK: Trachea midline. No JVD or lymphadenopathy. Supple, nontender, no meningeal signs. CARDIOVASCULAR: Regular rate and rhythm without murmurs, gallops, or rubs. RESPIRATORY: Clear to auscultation. Breath sounds equal bilaterally. No wheezes , rales, or rhonchi. GASTROINTESTINAL: Abdomen soft, non-tender, nondistended. No hepato-splenomegaly , or palpable masses. No guarding. MUSCULOSKELETAL: Extremities without clubbing, cyanosis, or edema. No joint tenderness, effusion, or edema noted. No calf tenderness. Negative Homans sign bilaterally. NEUROLOGICAL: Awake and alert. Cranial nerves II through XII intact. Motor and sensory grossly within normal limits. Five out of 5 muscle strength in all muscle groups. Normal speech. Result Diagram: 12/07/17200912/09/17 0707 Assessment and Plan Assessment and Plan Psychiatric evaluation with adjustment disorder with depressed mood Status post lacerations of bilateral arms with repair by the emergency room Currently getting dressing changes We will ask robotics technologist to evaluate and treat the arms Status post traumatic brain injury Status post right foot repair in the past Code Status Full code Discussed Condition With glass furnace operator and patient Ashok Clark DO December 11, 2017 14:38
[2017-12-11] MEDS: REMOVE OLD PATCH T-DERMAL SCH (20:12)
[2017-12-11] MEDS: LORazepam 1 MG TAB PO PRN (22:38)
[2017-12-12] MEDS: IBUPROFEN 600 MG TAB PO SCH ×2 (06:05→12:00)
[2017-12-12 06:45] VITALS: BP 113/70; PULSE 68; RESP 18; TEMP 97.8; O2SAT 97
[2017-12-12] MEDS: NICOTINE 21 MG/24 HR PATCH T-DERMAL SCH (08:20)
[2017-12-12] MEDS: SERTRALINE HCL 50 MG TAB PO SCH ×2 (08:20→08:34)
[2017-12-12] MEDS ORDERED: ZOLO25TA PO (09:40)
--- NOTE | 2017-12-12 09:43 | HHI.DS ---
Psychiatry Discharge Summary Inpatient Psychiatric care?: Yes Advance Directive: No Reason Not Provided: does not have Mental Health AdvanceDirective: No Health Care Proxy: No Admission Admission Date December 08, 2017 at 13:22 Admission Diagnosis: (1) Adjustment disorder with mixed disturbance of emotions and conduct ICD Code: F43.25 - Adjustment disorder with mixed disturbance of emotions and conduct Brief History From Dr. Alvarez's H&P: The patient is 52-year-old woman, domiciled with a friend in [facility], mother of 3 adult kids, unemployed, without no previous psychiatric history, no previous suicide attempts, no previous psychiatric hospitalizations, medical history of TBI, presents emergency department under [place] act by PD for psychological evaluation. Patient is brought in by EMS. She had performed suicide gesture cutting to both forearms, patient has multiple self-inflicted lacerations in both arms, many of them sutured. She states that she has been living in a house for the last 17 years. A drug addict moved in downstairs and she cannot get him evicted. She just does not want to be here any longer. She denies that this was a suicide attempt. She denies any homicidal ideation. Not up-to-date with immunizations. Denies any medical problems. Denies any toxic ingestions. Denies alcohol and drugs. She does smoke a pack a day. Symptoms are severe. No alleviating factors. EMR was reviewed. No collateral information available at this moment. Case widely discussed with nursing charge. On psychiatric evaluation today the patient is oppositional, irritable , requesting to be discharged. The patient reports that she does not need to be here. She says that she is very afraid of the patient's around her. "There is a woman that is terrible, she has pick on me and "she does not stop watching " . The patient is quite concrete and at times childish. She states that the reason she is here is because she has been renting her basement to a roommate who is heroine addict, "he is no pain when, but he does not want to leave the house now". She reports that they had an argument yesterday, she lost the control herself, she had a moment of obnubilation and blindness, and under a stress and anger she cut herself. She says that she did not wanted to kill herself. She says that she was 1 of the, but now she understand her mistake and she regrets it. The patient denies suicidal enemas ideation, she denies visual and auditory hallucinations. She is oriented 3. No attention deficit, no fluctuation of consciousness. No agitation or aggressive behavior. On my examination today, 12/10: Patient seen and examined with nurse. Chart reviewed. Case discussed with nursing staff. I have discussed with patient the purpose of my evaluation today as regards the second opinion. On my examination today, the patient presents as fairly childlike. Her thought process is concrete and she repeats much of the same material over and over again. She is tearful and labile. She is perseverative on wanting to be sent to the [facility]. She tells me "I do not want to be in [facility] with a heroin addict." No active SI or HI verbalized, but the patient seems unreliable to contract for safety. No psychotic material verbalized. Psychiatric interview is somewhat limited because of patient's perseveration, and I am unable to obtain any meaningful past psychiatric, family, chemical dependency or social history for the same reason. No physical complaints. Tobacco Use In Past 30 Days: No Tobacco Past 30 Days Alcohol Use: Never Hospital Course Patient's hospital stay was uneventful. While she was somewhat apprehensive about taking the Zoloft she showed no significant problems with that she is willing to take it. We will adjust the dose to at bedtime to help with some mild sedation she was experiencing. She is also talked with her "boyfriend" they have made amends she is now happy that they are back together again and she has some place to stay. She now denies suicidality homicidality voices or visions. She feels safe going home with him today she is willing to continue her Zoloft and follow-up outpatient [facility] act. Thus patient will be discharged today to her boyfriend follow-up [facility] act and continue taking Zoloft at that time Results Blood Pressure 113 / 70 Vital Signs Date Time Temp Pulse Resp B/P (MAP) Pulse Ox O2 Delivery O2 Flow Rate FiO2 12/12/17 06:45 97.8 68 18 113/70 (84) 97 12/08/17 10:47 Room Air Laboratory Results Test 12/09/17 07:07 Cholesterol Level 124 MG/DL (120-200) HDL Cholesterol 45.8 MG/DL (40.0-60.0) Hemoglobin A1c 5.5 % (4.3-6.0) LDL Cholesterol 62 MG/DL (0-99) Triglycerides Level 80 MG/DL (42-150) Summary of Procedures None done Pending results at discharge: No Medications # of Antipsychotic meds at D/C: 0 Approp Antipsych med options 1 - Minimum of three failed multiple trials of monotherapy. 2 - Documented plan to taper to monotherapy due to previous use of multiple meds OR cross-taper in progress at D/C. 3 - Documentation of augmentation of Clozapine. 4 - Justification other than those listed in allowable values 1-3, document here : Discharge Discharge Date: December 12, 2017 Discharge Diagnosis: (1) Adjustment disorder with mixed disturbance of emotions and conduct Diagnosis: Principal ICD Code: F43.25 - Adjustment disorder with mixed disturbance of emotions and conduct Pt Condition on Discharge: Stable Discharge Disposition: Discharge Home Discharge Instructions Diet Instructions: As Tolerated, No Restrictions Activities you can perform: Regular-No Restrictions Scheduled Appointment: Nikhil Moreno Discharge Time > 30 minutes Mental Status Examination Appearance: Appropriate Consciousness: Alert Orientation: x4 Motor Activity: Normal gait Speech: Pressured, Rapid Language: Adequate Fund of Knowledge: Inadequate Attention and Concentration: Adequate Memory: Unremarkable Mood: Sad, Anxious Affect: Other (Decreased range and intensity) Thought Process & Associations: Circumstantial, Tangential, Other ( Perseverative, concrete) Thought Content: Preoccupations Hallucination Type: None Delusion Type: None Suicidal Ideation: No (No SI voiced made illusions to her safety she was discharged to the street) Homicidal Ideation: No (No HI voiced) Homicidal Plan: No Homicidal Intention: No Insight: Poor Judgment: Poor Discharge/Advance Care Plan Health Problems: (1) Adjustment disorder with mixed disturbance of emotions and conduct Goals to promote your health * To prevent worsening of your condition and complications * To maintain your health at the optimal level Directions to meet your goals Take your medications as prescribed Follow your dietary instruction Follow activity as directed Keep your appointments as scheduled Take your immunizations and boosters as scheduled If your symptoms worsen call your PCP, if no PCP go to Urgent Care Center or Emergency Room For 24/ questions related to your inpatient stay or results of tests pending at discharge, please contact Dr. Luis Wills at Smoking is Dangerous to Your Health. Avoid second hand smoking Luis Wills MD December 12, 2017 09:43
== END 2017-12-12 13:05 | disposition home or self-care (01) | DRG 882 ==
LOC: NEPD 19:44 → NEDA 12-08 13:22 → H270 12-08 14:15
PROVIDERS: ADMIT Psychiatry & Neurology Psychiatry; ATTEND Psychiatry & Neurology Psychiatry
PROC: 0HQEXZZ Repair Left Lower Arm Skin, External Approach (ICD-10-PCS; principal; 2017-12-08)
PROC: 0HQDXZZ Repair Right Lower Arm Skin, External Approach (ICD-10-PCS; 2017-12-08)
DX: F43.25 Adjustment disorder with mixed disturbance of emotions and conduct (principal); F71 Moderate intellectual disabilities; F17.210 Nicotine dependence, cigarettes, uncomplicated; F43.10 Post-traumatic stress disorder, unspecified; S51.811A Laceration without foreign body of right forearm, initial encounter; S51.812A Laceration without foreign body of left forearm, initial encounter; S61.511A Laceration without foreign body of right wrist, initial encounter; S61.512A Laceration without foreign body of left wrist, initial encounter; X78.9XXA Intentional self-harm by unspecified sharp object, initial encounter; Z63.8 Other specified problems related to primary support group; Z87.820 Personal history of traumatic brain injury; Z88.0 Allergy status to penicillin
CPT/HCPCS: 12007; 80048; 80053; 80061; 80307; 83036; 84443; 85025; 90471; 90714; 96361; 96374; J2060; J7030

== ENCOUNTER 2017-12-15 06:44 | Emergency (ER) | payer SELFPAY ==
[~2017-12-15] VITALS: Ht 172.7 cm; Wt 53.7 kg
[~2017-12-15 06:44] MED LIST: ZOLO25TA PO
[2017-12-15 07:07] VITALS: BP 127/75; PULSE 72; RESP 20; TEMP 98.2; O2SAT 97
[2017-12-15] MEDS ORDERED: CLINDAMYCIN PHOS 600 MG/4 ML VIAL IM ONE (07:45)
[2017-12-15] MEDS ORDERED: CLIN150C14 PO (07:48)
[2017-12-15] MEDS ORDERED: IBUP1TAB7 PO (07:48)
--- NOTE | 2017-12-15 07:49 | PD ---
HPI Chief Complaint: Wound/Suture/Staple Re-Check Time Seen by Provider: 07:22 Travel History International Travel<30 days: No Contact w/Intl Traveler<30days: No Traveled to known affect area: No History of Present Illness HPI 52-year-old female presents to the emergency department for suture removal from bilateral forearms. Sutures been in place for 8 days. The lacerations were from self cutting. Denies suicidal ideation. Denies redness, drainage from the wound sites. She does say that her right forearm seems to be a little swollen and it smells funny. Also reports that her forearms are still painful and she thought the pain would decrease. Denies fever, vomiting. Has been keeping the areas covered with a bandage. No known aggravating or relieving factors. Symptoms are mild to moderate in severity. Has not been taking any medication or trying any treatments for her pain. No primary care provider. Allergies to penicillin. Denies significant past medical history. Has no other medical complaints. No other modifying factors or associated signs and symptoms. PFSH Past Medical History Arthritis: No Asthma: No Autoimmune Disease: No Anxiety: Yes Depression: Yes Heart Rhythm Problems: No Cancer: No Cardiovascular Problems: No High Cholesterol: No Chemotherapy: No Chest Pain: No Congestive Heart Failure: No COPD: No Cerebrovascular Accident: No Diabetes: No Endocrine: No GERD: No Genitourinary: No Hiatal Hernia: No Immune Disorder: No Kidney Stones: No Musculoskeletal: No Neurologic: No Psychiatric: Yes Reproductive: No Respiratory: No Immunizations Current: Yes Migraines: No Radiation Therapy: No Renal Failure: No Seizures: No Sickle Cell Disease: No Sleep Apnea: No Thyroid Disease: No Ulcer: No Tetanus Vaccination: < 5 Years Influenza Vaccination: No ?: Not Past Surgical History Abdominal Surgery: No AICD: No Arteriovenous Shunt: No Cardiac Surgery: No Ear Surgery: No Endocrine Surgery: No Eye Surgery: No Genitourinary Surgery: No Gynecologic Surgery: No Insulin Pump: No Joint Replacement: No Oral Surgery: No Pacemaker: No Thoracic Surgery: No Social History Alcohol Use: Yes Tobacco Use: No Substance Use: No (HX ALCOHOL) Allergies-Medications (Allergen,Severity, Reaction): Coded Allergies: Penicillins (Verified Allergy, Unknown, 12/15/17) Reported Meds & Prescriptions Reported Meds & Active Scripts Active Ibuprofen 800 Mg Tab 800 Mg PO Q6HR PRN Clindamycin (Clindamycin HCl) 150 Mg Cap 450 Mg PO Q6H 10 Days Zoloft (Sertraline HCl) 25 Mg Tab 25 Mg PO HS Review of Systems Except as stated in HPI: all other systems reviewed are Neg Physical Exam Narrative GENERAL: Well-nourished, well-developed female patient, in no acute distress SKIN: Warm and dry. Bilateral forearms with multiple laceration wounds that are well approximated and with sutures intact; right forearm with surrounding erythema and minimal edema; left forearm does have some minimal erythema to a couple of the wound sites; no drainage noted. Bilateral upper extremity's are supple and nontender 2+ radial pulses and sensory intact. No lymphangitis bilaterally. HEAD: Atraumatic. Normocephalic. EYES: Pupils equal and round. No scleral icterus. No injection or drainage. ENT: Mucosa pink and moist. Airway patent. NECK: Trachea midline. CARDIOVASCULAR: Regular rate. RESPIRATORY: No accessory muscle use. GASTROINTESTINAL: Flat. MUSCULOSKELETAL: No obvious deformities. No clubbing. No cyanosis. No edema. NEUROLOGICAL: Awake and alert. Oriented 3. No obvious cranial nerve deficits. Motor grossly within normal limits. Normal speech. PSYCHIATRIC: Appropriate mood and affect; insight and judgment normal. Data Data Last Documented VS Vital Signs Date Time Temp Pulse Resp B/P (MAP) Pulse Ox O2 Delivery O2 Flow Rate FiO2 12/15/17 07:07 98.2 72 20 127/75 (92) 97 Orders Orders Clindamycin Inj (Cleocin Inj) (12/15/17 07:45) Wound Care (12/15/17 07:37) Ed Discharge Order (12/15/17 07:50) [facility] Medical Decision Making Medical Screen Exam Complete: Yes Emergency Medical Condition: Yes Medical Record Reviewed: Yes Differential Diagnosis Wound recheck, suture removal, wound infection Narrative Course 52-year-old female presents for suture removal to bilateral forearms from self- inflicted lacerations. Patient denies suicidal ideation. The wounds appear infected with some surrounding cellulitis. There is no lymphangitis. Patient is afebrile and nontoxic-appearing. She denies fever, vomiting. I will keep the sutures intact secondary to the wound infection. Clindamycin 600 mg IM administered in the ER. Dressing applied. Wound care discussed and patient verbalized understanding and agreement. Instructed patient to return to the emergency department in 2 days for wound recheck. Discussed symptoms of worsening infection and reasons to return to the emergency department earlier, if needed. Clindamycin and ibuprofen prescribed for home. Instructed patient to follow up with primary care provider. Patient verbalizes understanding and agreement with treatment plan. Patient is medically cleared and stable for discharge. Discussed reasons to return to the emergency department. Patient agrees with treatment plan. The patients vital signs are stable and the patient is stable for outpatient follow-up and treatment. Patient discharged home, stable and in no acute distress. Diagnosis Primary Impression: Encounter for re-check of laceration wound Additional Impression: Wound infection Referrals: [facility] Primary Care Physician Patient Instructions: Acute Wound Care (DC), Care For Your Stitches (ED), General Instructions, Laceration (ED), Wound Infection (ED) Additional Instructions: Antibiotics as prescribed; take your prescription of clindamycin to [facility] for lower cost Keep area clean and dry Ibuprofen or Tylenol as directed and as needed for pain/inflammation Ice pack to area as needed to decrease pain Return to the emergency department in 2 days for wound recheck Follow up with primary care provider within 1-2 days Return to the emergency department immediately with worsening of symptoms, particularly if reddened streaks up or down the affected extremity from the suture site, fever, vomiting, numbness/tingling in the affected extremity, loss of sensation in the affected extremity, severe swelling of the affected extremity Med/Other Pt SpecificInfo: Prescription(s) given Scripts Ibuprofen (Ibuprofen) 800 Mg Tab 800 MG PO Q6HR Y for PAIN, #20 TAB 0 Refills Prov: Indira Caba 12/15/17 Clindamycin (Clindamycin) 150 Mg Cap 450 MG PO Q6H for Infection for 10 Days, #120 CAP 0 Refills Prov: Indira Caba 12/15/17 Disposition: 01 DISCHARGE HOME Condition: Stable Indira Caba Dec 15, 2017 07:49
== END 2017-12-15 08:14 | disposition home or self-care (01) ==
LOC: NEPD 06:44
DX: T81.4XXA Infection following a procedure, initial encounter (principal); L76.82 Other postprocedural complications of skin and subcutaneous tissue; F41.9 Anxiety disorder, unspecified; F32.9 Major depressive disorder, single episode, unspecified; Z88.0 Allergy status to penicillin
CPT/HCPCS: 99281

== ENCOUNTER 2017-12-17 06:44 | Emergency (ER) | payer SELFPAY ==
[~2017-12-17 06:44] MED LIST changes: +CLIN150C14 PO; +IBUP1TAB7 PO
[2017-12-17 06:49] VITALS: BP 126/80; PULSE 66; RESP 18; TEMP 97.3; O2SAT 98
--- NOTE | 2017-12-17 07:18 | PD ---
HPI Chief Complaint: Wound/Suture/Staple Re-Check Time Seen by Provider: 07:16 Travel History International Travel<30 days: No Contact w/Intl Traveler<30days: No Traveled to known affect area: No History of Present Illness HPI Patient 52-year-old female presents emergency department for reevaluation of bilateral volar forearm wounds which were apparently self-inflicted on 12/07. Patient was readmitted to the emergency department 2 days ago for cellulitis involving his wounds, she was given clindamycin she filled her antibiotic prescription since been taking the clindamycin as prescribed. She wants to have the sutures removed. She states that the redness is getting better and occasionally she has been missing a dose of her clindamycin but is taking it. Denies any fevers nausea vomiting diarrhea constipation. Denies any suicidal homicidal ideation PFSH Past Medical History Arthritis: No Asthma: No Autoimmune Disease: No Anxiety: Yes Depression: Yes Heart Rhythm Problems: No Cancer: No Cardiovascular Problems: No High Cholesterol: No Chemotherapy: No Chest Pain: No Congestive Heart Failure: No COPD: No Cerebrovascular Accident: No Diabetes: No Endocrine: No GERD: No Genitourinary: No Hiatal Hernia: No Immune Disorder: No Kidney Stones: No Musculoskeletal: No Neurologic: No Psychiatric: Yes Reproductive: No Respiratory: No Immunizations Current: Yes Migraines: No Radiation Therapy: No Renal Failure: No Seizures: No Sickle Cell Disease: No Sleep Apnea: No Thyroid Disease: No Ulcer: No Past Surgical History Abdominal Surgery: No AICD: No Arteriovenous Shunt: No Cardiac Surgery: No Ear Surgery: No Endocrine Surgery: No Eye Surgery: No Genitourinary Surgery: No Gynecologic Surgery: No Insulin Pump: No Joint Replacement: No Oral Surgery: No Pacemaker: No Thoracic Surgery: No Social History Alcohol Use: Yes Tobacco Use: No Substance Use: No (HX ALCOHOL) Allergies-Medications (Allergen,Severity, Reaction): Coded Allergies: Penicillins (Verified Allergy, Unknown, 12/17/17) Reported Meds & Prescriptions Reported Meds & Active Scripts Active Ibuprofen 800 Mg Tab 800 Mg PO Q6HR PRN Clindamycin (Clindamycin HCl) 150 Mg Cap 450 Mg PO Q6H 10 Days Zoloft (Sertraline HCl) 25 Mg Tab 25 Mg PO HS Review of Systems Except as stated in HPI: all other systems reviewed are Neg Physical Exam Narrative GENERAL: Well-nourished, well-developed patient. SKIN: Focused skin assessment warm/dry. Significant laceration to bilateral forearms as previously documented, V-shaped lacerations. Running simple stitches still in place, the wounds are just now beginning to show signs of healing, there really is minimal erythema surrounding all these wounds. There is no lymphangitis and no palpable abscess. HEAD: Normocephalic. EYES: No scleral icterus. No injection or drainage. NECK: Supple, trachea midline. No JVD or lymphadenopathy. CARDIOVASCULAR: Regular rate and rhythm without murmurs, gallops, or rubs. RESPIRATORY: Breath sounds equal bilaterally. No accessory muscle use. GASTROINTESTINAL: Abdomen soft, non-tender, nondistended. MUSCULOSKELETAL: No cyanosis, or edema. BACK: Nontender without obvious deformity. No CVA tenderness. Data Data Last Documented VS Vital Signs Date Time Temp Pulse Resp B/P (MAP) Pulse Ox O2 Delivery O2 Flow Rate FiO2 12/17/17 06:49 97.3 66 18 126/80 (95) 98 Orders Orders Ed Discharge Order (12/17/17 07:18) MDM Medical Decision Making Medical Screen Exam Complete: Yes Emergency Medical Condition: Yes Differential Diagnosis Laceration, cellulitis, abscess Narrative Course Patient room to the emergency department, I have examined her wounds and given the comparison to previous documentation looks like they are healing quite well. Patient has somewhat of an odd affect but is not a threat to herself or others currently. Discussed that I would prefer the stitches stay in for a full 2 weeks prior to being removed. Discussed continuing the antibiotics until they are gone, she will return later this week for stitch removal if clinically indicated Diagnosis Primary Impression: Encounter for wound care Additional Impression: Encounter for evaluation of wound Additional Instructions: Return to ER on monday for consideration of suture removal. Continue your antibiotics until they are all gone. Med/Other Pt SpecificInfo: Prescription(s) given Disposition: 01 DISCHARGE HOME Condition: Stable Dannie Kumar MD Dec 17, 2017 07:18
== END 2017-12-17 08:11 | disposition home or self-care (01) ==
LOC: NEPC 06:44
DX: Z48.02 Encounter for removal of sutures (principal); F41.9 Anxiety disorder, unspecified; F32.9 Major depressive disorder, single episode, unspecified; Z88.0 Allergy status to penicillin; Z79.899 Other long term (current) drug therapy
CPT/HCPCS: 99281

== ENCOUNTER 2017-12-22 06:36 | Emergency (ER) | payer SELFPAY ==
[2017-12-22 06:38] VITALS: BP 137/66; PULSE 71; RESP 19; TEMP 97.3; O2SAT 98
--- NOTE | 2017-12-22 07:57 | PD ---
HPI Chief Complaint: GI Complaint Time Seen by Provider: 07:40 Travel History International Travel<30 days: No Contact w/Intl Traveler<30days: No Traveled to known affect area: No History of Present Illness HPI This is a 52-year-old female who sustained self-inflicted lacerations to her bilateral wrists 15 days ago, presents here today for suture removal. Patient states that she has been very anxious lately. Patient has been on clindamycin and reports that she is been nauseous while taking it. She denies any hives or difficulty breathing or difficulty swallowing. She states that when she takes the clindamycin it makes her nauseous and she threw up this morning. She denies any fevers, chills. She denies any drainage from the laceration sites. She states that she wishes to have the sutures removed. She did have an infection in the wound previously. There are no other complaints at the time of my examination. PFSH Past Medical History Arthritis: No Asthma: No Autoimmune Disease: No Anxiety: Yes Depression: Yes Heart Rhythm Problems: No Cancer: No Cardiovascular Problems: No High Cholesterol: No Chemotherapy: No Chest Pain: No Congestive Heart Failure: No COPD: No Cerebrovascular Accident: No Diabetes: No Endocrine: No Gastrointestinal Disorders: No GERD: No Genitourinary: No Headaches: No Hiatal Hernia: No Heparin Induced Thrombocytopen: No Hypertension: No Immune Disorder: No Implanted Vascular Access Dvce: No Kidney Stones: No Musculoskeletal: No Neurologic: No Psychiatric: Yes Reproductive: No Respiratory: No Immunizations Current: Yes Migraines: No Radiation Therapy: No Renal Failure: No Seizures: No Sickle Cell Disease: No Sleep Apnea: No Thyroid Disease: No Ulcer: No Tetanus Vaccination: < 5 Years Influenza Vaccination: No ?: Not Past Surgical History Abdominal Surgery: No AICD: No Arteriovenous Shunt: No Cardiac Surgery: No Ear Surgery: No Endocrine Surgery: No Eye Surgery: No Genitourinary Surgery: No Gynecologic Surgery: No Insulin Pump: No Joint Replacement: No Neurologic Surgery: No Oral Surgery: No Pacemaker: No Thoracic Surgery: No Other Surgery: No Social History Alcohol Use: Yes Tobacco Use: No Substance Use: No (HX ALCOHOL) Allergies-Medications (Allergen,Severity, Reaction): Coded Allergies: Penicillins (Verified Allergy, Unknown, 12/17/17) Reported Meds & Prescriptions Reported Meds & Active Scripts Active Ibuprofen 800 Mg Tab 800 Mg PO Q6HR PRN Clindamycin (Clindamycin HCl) 150 Mg Cap 450 Mg PO Q6H 10 Days Zoloft (Sertraline HCl) 25 Mg Tab 25 Mg PO HS Review of Systems Except as stated in HPI: all other systems reviewed are Neg General / Constitutional: No: Fever, Chills HENT: No: Headaches, Neck Pain Cardiovascular: No: Chest Pain or Discomfort, Palpitations Respiratory: No: Cough, Shortness of Breath Gastrointestinal: Positive: Nausea, Vomiting, No: Diarrhea, Abdominal Pain Genitourinary: No: Dysuria Skin: Positive Other (Scabbing of her lacerations. No redness or purulent drainage.) Physical Exam Narrative GENERAL: Well-nourished, well-developed patient. SKIN: Focused skin assessment warm/dry. On examination the patient's bilateral forearms/wrists there are healing lacerations with scabs visible. There is no evidence of cellulitis or purulent drainage. The sutures are ready to be removed. HEAD: Normocephalic. EYES: No scleral icterus. No injection or drainage. NECK: Supple, trachea midline. No JVD or lymphadenopathy. MUSCULOSKELETAL: No cyanosis, or edema. BACK: Nontender without obvious deformity. No CVA tenderness. Data Data Last Documented VS Vital Signs Date Time Temp Pulse Resp B/P (MAP) Pulse Ox O2 Delivery O2 Flow Rate FiO2 12/22/17 06:38 97.3 71 19 137/66 (89) 98 MDM Medical Decision Making Medical Screen Exam Complete: Yes Emergency Medical Condition: Yes Differential Diagnosis Suture removal versus nausea secondary to medications versus anxiety Narrative Course 52-year-old female here for suture removal. Patient had lacerations that were self-inflicted on her bilateral volar forearms/wrists 15 days ago. There is no evidence of infection. The patient is currently taking clindamycin however it is making her nauseous when she takes it. We will decrease her dose to 300 mg 3 times daily. Patient is instructed to take it with food. She is instructed to follow-up if she develops any worsening symptoms. She is instructed to keep the wound clean and dry. Procedures Procedure Narrative Under my direct supervision, sutures were removed by the nurse. There were no comp occasions. The thick scabbed areas were Steri-Stripped and bacitracin ointment was applied. Diagnosis Primary Impression: Encounter for removal of sutures Additional Impression: Nausea & vomiting Additional Instructions: Decrease your clindamycin dose to 300 mg per dose 4 times daily. Take with food. Disposition: 01 DISCHARGE HOME Condition: Stable Duong Villegas MD Dec 22, 2017 07:57
--- NOTE | 2017-12-22 15:25 | EKG ---
Date Performed: 12/22/2017 Time Performed: 06:52:37 PTAGE: 52 years EKG: Sinus rhythm INDETERMINATE AXIS LOW QRS VOLTAGE IN PRECORDIAL LEADS INCOMPLETE RIGHT BUNDLE BRANCH BLOCK BORDERLI NE ECG NO PREVIOUS TRACING DOCTOR: Taqueria Coffman Interpretating Date/Time 12/22/2017 15:24:06
== END 2017-12-22 08:12 | disposition home or self-care (01) ==
LOC: NEPC 06:36
DX: R11.2 Nausea with vomiting, unspecified (principal); I45.10 Unspecified right bundle-branch block; Z48.02 Encounter for removal of sutures; Z88.0 Allergy status to penicillin; Z79.899 Other long term (current) drug therapy
CPT/HCPCS: 93005; 99281; 99283